=== PATIENT | female | born 1975 | race Caucasian/White ===

== ENCOUNTER 2019-05-15 13:11 | Emergency (ER) | payer MEDICARE, MEDICAID ==
[~2019-05-15] VITALS: Ht 162.6 cm; Wt 91.0 kg
[~2019-05-15 13:11] MED LIST: ATOR10TA PO; BENZ1TAB7 MT; DILT120C88 PO; HAL5 PO; OLAN15TA3 PO
[2019-05-15] MEDS ORDERED: KETOROLAC 30MG/ML VIAL IV ONE (16:15)
[2019-05-15 22:31] VITALS: BP 132/74
== END 2019-05-15 22:36 | disposition home or self-care (01) ==
LOC: ER 14:05
DX: R07.89 Other chest pain (principal); F32.9 Major depressive disorder, single episode, unspecified; E11.9 Type 2 diabetes mellitus without complications; J44.9 Chronic obstructive pulmonary disease, unspecified; I10 Essential (primary) hypertension; Z89.431 Acquired absence of right foot; Z88.8 Allergy status to other drugs, medicaments and biological substances
CPT/HCPCS: 82962; 96374; 99285; J1885

== ENCOUNTER 2019-09-29 22:47 | Emergency (ER) | payer MEDICARE, MEDICAID ==
[~2019-09-29] VITALS: Ht 170.2 cm; Wt 78.0 kg
[2019-09-30] MEDS ORDERED: ASPIRIN 81MG TABLET PO ONE (01:00)
[2019-09-30 01:21] LABS: BASOPHILS % 0.7 % (0.0-2.0); EOSINOPHILS % 1.4 % (0.0-5.0); HEMATOCRIT. 29.1 % (36.0-48.0); HEMOGLOBIN. 9.6 g/dL (12.0-16.0); LYMPHOCYTES % 22.2 % (20.0-50.0); MEAN CORPUSCULAR HEMOGLOBIN 26.9 pg (28.0-32.0); MEAN CORPUSCULAR VOLUME 81.4 fL (81.0-99.0); MEAN PLATELET VOLUME 8.5 fl (7.4-10.4); MONOCYTES % 3.7 % (2.0-8.0); PLATELET 281 x1000/uL (130-400); RED BLOOD CELL COUNT 3.58 mill/uL (4.2-5.4); RED CELL DISTRIBUTION WIDTH 15.4 % (11.6-14.6)
[2019-09-30 01:28] LABS: CHLORIDE 106 mEq/L (98-107)
[2019-09-30 01:31] LABS: ETHANOL BLOOD < 10 mg/dL
[2019-09-30 08:48] LABS: *AMPHETAMINES SCREEN URINE NEGATIVE (NEGATIVE); *BARBITURATES SCREEN URINE NEGATIVE (NEGATIVE); *BENZODIAZEPINES SCREEN URINE NEGATIVE (NEGATIVE); *COCAINE SCREEN URINE NEGATIVE (NEGATIVE); CANNABINOID URINE SCREEN NEGATIVE (NEGATIVE); METHADONE URINE SCREEN NEGATIVE (NEGATIVE); OPIATES URINE SCREEN NEGATIVE (NEGATIVE); PHENCYCLIDINE URINE SCREEN NEGATIVE (NEGATIVE)
[2019-09-30 11:30] VITALS: BP 158/60
== END 2019-09-30 14:01 | disposition left against medical advice (07) ==
LOC: ER 22:47
DX: R44.3 Hallucinations, unspecified (principal); R07.89 Other chest pain; Z11.59 Encounter for screening for other viral diseases
CPT/HCPCS: 36415; 71045; 80053; 80305; 80320; 82962; 83880; 84484; 85025; 87635; 93005; 99285; C9803; G0480

== ENCOUNTER 2020-05-11 11:18 | Inpatient (IN) | payer MEDICARE, MEDICAID ==
[~2020-05-11] VITALS: Ht 162.6 cm; Wt 99.8 kg
[~2020-05-11 11:18] MED LIST changes: -DILT120C88 PO; +DILT360C27 MT
[2020-05-11 12:00] VITALS: BP 129/70
[2020-05-11 12:28] LABS: BASOPHILS % 0.7 % (0.0-2.0); EOSINOPHILS % 4.9 % (0.0-5.0); HEMATOCRIT. 35.2 % (36.0-48.0); LYMPHOCYTES % 31.1 % (20.0-50.0); MEAN CORPUSCULAR HEMOGLOBIN 25.3 pg (28.0-32.0); MEAN CORPUSCULAR VOLUME 80.8 fL (81.0-99.0); MEAN PLATELET VOLUME 8.9 fl (7.4-10.4); MONOCYTES % 4.3 % (2.0-8.0); PLATELET 258 x1000/uL (130-400); RED BLOOD CELL COUNT 4.36 mill/uL (4.2-5.4); RED CELL DISTRIBUTION WIDTH 17.7 % (11.6-14.6)
[2020-05-11 12:35] LABS: CHLORIDE 107 mEq/L (98-107)
[2020-05-11] MEDS ORDERED: ACETAMINOPHEN 325MG TABLET PO PRN (13:30)
[2020-05-11] MEDS ORDERED: CLONIDINE 0.1MG TABLET PO PRN (13:30)
[2020-05-11] MEDS ORDERED: ONDANSETRON HCL 4MG/2ML INJ IV PRN (13:30)
[2020-05-11] MEDS ORDERED: IPRATROPIUM/ALBUTEROL 0.5-3(2.5)MG/3ML NEB HHN PRN (13:30)
[2020-05-11] MEDS ORDERED: DIPHENHYDRAMINE 50MG/ML VIAL IV PRN (13:30)
[2020-05-11] MEDS: ENOXAPARIN 40MG/0.4ML SYR SUBCUT SCH (17:21)
[2020-05-11] MEDS: OLANZAPINE 10MG TABLET PO SCH (17:29)
[2020-05-11] MEDS: DILTIAZEM HCL 300MG CAPSULE SR 24HR PO SCH (17:30)
[2020-05-11 18:21] VITALS: BP 129/70
[2020-05-11 20:00] VITALS: BP 112/51
[2020-05-11] MEDS: ATORVASTATIN CALCIUM 10MG TABLET PO SCH (22:08)
[2020-05-11] MEDS ORDERED: IOHEXOL-350 100 ML BOTTLE ONE (22:08)
[2020-05-11] MEDS: BENZTROPINE MESYLATE 2MG TABLET PO SCH (22:08)
[2020-05-11] MEDS: HALOPERIDOL 5MG TABLET PO SCH (22:09)
[2020-05-12] VITALS: BP 117/58
[2020-05-12] MEDS ORDERED: DEXTROSE 50% WATER 50ML SYRINGE IV PRN (01:15)
[2020-05-12 04:00] VITALS: BP 103/50
[2020-05-12 06:27] LABS: BASOPHILS % 0.8 % (0.0-2.0); HEMATOCRIT. 33.9 % (36.0-48.0); HEMOGLOBIN. 10.7 g/dL (12.0-16.0); LYMPHOCYTES % 32.4 % (20.0-50.0); MEAN CORPUSCULAR HEMOGLOBIN 25.6 pg (28.0-32.0); MEAN CORPUSCULAR VOLUME 81.3 fL (81.0-99.0); MEAN PLATELET VOLUME 9.1 fl (7.4-10.4); MONOCYTES % 4.4 % (2.0-8.0); NEUTROPHILS % 58.4 % (40.0-76.0); PLATELET 257 x1000/uL (130-400); RED BLOOD CELL COUNT 4.17 mill/uL (4.2-5.4); RED CELL DISTRIBUTION WIDTH 18.2 % (11.6-14.6)
[2020-05-12 07:09] LABS: CHLORIDE 107 mEq/L (98-107)
[2020-05-12 07:37] LABS: LDL CHOLESTEROL 56 mg/dL (5-100)
[2020-05-12 07:39] LABS: HDL CHOLESTEROL 50 mg/dL (40-59)
[2020-05-12] MEDS: BLOOD SUGAR DIAGNOSTIC STRIP TEST SCH ×4 (07:54→21:40)
[2020-05-12] MEDS: ENOXAPARIN 40MG/0.4ML SYR SUBCUT SCH (08:38)
[2020-05-12] MEDS: DILTIAZEM HCL 300MG CAPSULE SR 24HR PO SCH (08:39)
[2020-05-12] MEDS: OLANZAPINE 10MG TABLET PO SCH ×2 (08:41→17:18)
[2020-05-12] MEDS: BENZTROPINE MESYLATE 2MG TABLET PO SCH ×2 (08:41→17:18)
[2020-05-12] MEDS: INSULIN LISPRO 100 UNITS/ML SUBCUT SCH ×4 (08:43→21:00)
[2020-05-12 12:00] VITALS: BP 107/53
[2020-05-12 16:00] VITALS: BP 125/69
[2020-05-12 20:00] VITALS: BP 105/53
[2020-05-12] MEDS: ATORVASTATIN CALCIUM 10MG TABLET PO SCH (21:40)
[2020-05-12] MEDS: HALOPERIDOL 5MG TABLET PO SCH (21:40)
[2020-05-13] VITALS: BP 103/66
[2020-05-13 04:00] VITALS: BP 115/68
[2020-05-13] MEDS: BLOOD SUGAR DIAGNOSTIC STRIP TEST SCH ×3 (05:18→17:01)
[2020-05-13 06:18] LABS: CHLORIDE 110 mEq/L (98-107)
[2020-05-13 06:36] LABS: BASOPHILS % 1.1 % (0.0-2.0); EOSINOPHILS % 5.7 % (0.0-5.0); HEMATOCRIT. 33.5 % (36.0-48.0); HEMOGLOBIN. 10.6 g/dL (12.0-16.0); LYMPHOCYTES % 39.8 % (20.0-50.0); MEAN CORPUSCULAR HEMOGLOBIN 25.6 pg (28.0-32.0); MEAN CORPUSCULAR VOLUME 80.9 fL (81.0-99.0); MEAN PLATELET VOLUME 9.1 fl (7.4-10.4); MONOCYTES % 4.5 % (2.0-8.0); NEUTROPHILS % 48.9 % (40.0-76.0); PLATELET 264 x1000/uL (130-400); RED BLOOD CELL COUNT 4.14 mill/uL (4.2-5.4); RED CELL DISTRIBUTION WIDTH 18.2 % (11.6-14.6)
[2020-05-13] MEDS: INSULIN LISPRO 100 UNITS/ML SUBCUT SCH ×3 (07:40→17:40)
[2020-05-13 08:00] VITALS: BP 125/60
[2020-05-13] MEDS: BENZTROPINE MESYLATE 2MG TABLET PO SCH ×2 (08:12→16:50)
[2020-05-13] MEDS: DILTIAZEM HCL 300MG CAPSULE SR 24HR PO SCH (08:12)
[2020-05-13] MEDS: ENOXAPARIN 40MG/0.4ML SYR SUBCUT SCH (08:12)
[2020-05-13] MEDS: OLANZAPINE 10MG TABLET PO SCH ×2 (08:13→16:50)
[2020-05-13 12:00] VITALS: BP 152/72
[2020-05-13 16:00] VITALS: BP 111/70
[2020-05-13 16:25] VITALS: BP 117/71
== END 2020-05-13 19:24 | DRG 206 ==
LOC: ER 11:18 → 8WST 12:52 → ENRESERV 13:21
PROVIDERS: ADMIT Internal Medicine; ATTEND Internal Medicine
DX: M94.0 Chondrocostal junction syndrome [Tietze] (principal); E11.9 Type 2 diabetes mellitus without complications; F20.9 Schizophrenia, unspecified; I10 Essential (primary) hypertension; F31.9 Bipolar disorder, unspecified; E78.5 Hyperlipidemia, unspecified; E66.01 Morbid (severe) obesity due to excess calories; Z83.3 Family history of diabetes mellitus; Z68.37 Body mass index [BMI] 37.0-37.9, adult
CPT/HCPCS: 36415; 71045; 80048; 80053; 80061; 82962; 83036; 83880; 84443; 84484; 85025; 93005; 93306; 93970; 99285; J1630; J1650; J1815; Q9967

== ENCOUNTER 2020-10-16 11:19 | Emergency (ER) | payer MEDICARE, MEDICAID ==
[~2020-10-16] VITALS: Ht 165.1 cm; Wt 91.0 kg
[2020-10-16 13:27] LABS: BASOPHILS % 0.6 % (0.0-2.0); EOSINOPHILS % 3.3 % (0.0-5.0); HEMATOCRIT. 34.9 % (36.0-48.0); HEMOGLOBIN. 11.5 g/dL (12.0-16.0); LYMPHOCYTES % 23.8 % (20.0-50.0); MEAN CORPUSCULAR HEMOGLOBIN 27.2 pg (28.0-32.0); MEAN CORPUSCULAR VOLUME 82.7 fL (81.0-99.0); MEAN PLATELET VOLUME 8.7 fl (7.4-10.4); MONOCYTES % 6.8 % (2.0-8.0); NEUTROPHILS % 65.5 % (40.0-76.0); PLATELET 256 x1000/uL (130-400); RED BLOOD CELL COUNT 4.22 mill/uL (4.2-5.4); RED CELL DISTRIBUTION WIDTH 14.4 % (11.6-14.6)
[2020-10-16 13:34] LABS: CHLORIDE 106 mEq/L (98-107)
[2020-10-16 21:27] VITALS: BP 120/68
== END 2020-10-16 21:36 | disposition home or self-care (01) ==
LOC: ER 11:36
DX: R07.89 Other chest pain (principal); Z79.899 Other long term (current) drug therapy; F20.9 Schizophrenia, unspecified; Z20.822 Contact with and (suspected) exposure to COVID-19
CPT/HCPCS: 36415; 71045; 80048; 84484; 85025; 87426; 93005; 99285

== ENCOUNTER 2021-04-23 02:52 | Emergency (ER) | payer MEDICARE, MEDICAID ==
[~2021-04-23] VITALS: Ht 154.9 cm; Wt 91.0 kg
[2021-04-23] MEDS ORDERED: ASPIRIN 81MG TABLET PO ONE (03:15)
[2021-04-23 03:43] LABS: BASOPHILS % 1.1 % (0.0-2.0); EOSINOPHILS % 4.3 % (0.0-5.0); LYMPHOCYTES % 22.1 % (20.0-50.0); MEAN CORPUSCULAR HEMOGLOBIN 25.8 pg (28.0-32.0); MEAN CORPUSCULAR VOLUME 79.5 fL (81.0-99.0); MEAN PLATELET VOLUME 8.9 fl (7.4-10.4); NEUTROPHILS % 67.5 % (40.0-76.0); PLATELET 259 x1000/uL (130-400); RED BLOOD CELL COUNT 4.27 mill/uL (4.2-5.4); RED CELL DISTRIBUTION WIDTH 14.5 % (11.6-14.6)
[2021-04-23 03:49] LABS: CHLORIDE 107 mEq/L (98-107)
[2021-04-23 03:53] LABS: ETHANOL BLOOD < 10 mg/dL
[2021-04-23 05:31] LABS: *AMPHETAMINES SCREEN URINE NEGATIVE (NEGATIVE); CANNABINOID URINE SCREEN NEGATIVE (NEGATIVE); OPIATES URINE SCREEN NEGATIVE (NEGATIVE); PHENCYCLIDINE URINE SCREEN NEGATIVE (NEGATIVE)
[2021-04-23 05:33] LABS: *BARBITURATES SCREEN URINE NEGATIVE (NEGATIVE); *BENZODIAZEPINES SCREEN URINE NEGATIVE (NEGATIVE); *COCAINE SCREEN URINE NEGATIVE (NEGATIVE); METHADONE URINE SCREEN NEGATIVE (NEGATIVE)
[2021-04-23 09:51] VITALS: BP 152/78
== END 2021-04-23 09:53 ==
LOC: ER 03:12
DX: R07.89 Other chest pain (principal); E11.9 Type 2 diabetes mellitus without complications; E78.00 Pure hypercholesterolemia, unspecified; I10 Essential (primary) hypertension; Z88.8 Allergy status to other drugs, medicaments and biological substances; Z98.890 Other specified postprocedural states; Z86.59 Personal history of other mental and behavioral disorders
CPT/HCPCS: 36415; 71045; 80053; 80305; 80320; 83880; 84443; 84484; 85025; 93005; 99285; G0480

== ENCOUNTER 2021-05-08 11:21 | Emergency (ER) | payer MEDICARE, MEDICAID ==
[~2021-05-08] VITALS: Ht 165.1 cm; Wt 80.0 kg
[2021-05-08 12:45] LABS: BASOPHILS % 0.7 % (0.0-2.0); EOSINOPHILS % 4.4 % (0.0-5.0); HEMATOCRIT. 37.9 % (36.0-48.0); HEMOGLOBIN. 12.4 g/dL (12.0-16.0); LYMPHOCYTES % 35.3 % (20.0-50.0); MEAN CORPUSCULAR HEMOGLOBIN 25.5 pg (28.0-32.0); MEAN CORPUSCULAR VOLUME 78.3 fL (81.0-99.0); MEAN PLATELET VOLUME 8.7 fl (7.4-10.4); MONOCYTES % 3.9 % (2.0-8.0); NEUTROPHILS % 55.7 % (40.0-76.0); PLATELET 285 x1000/uL (130-400); RED BLOOD CELL COUNT 4.84 mill/uL (4.2-5.4); RED CELL DISTRIBUTION WIDTH 14.9 % (11.6-14.6)
[2021-05-08 12:52] LABS: CHLORIDE 105 mEq/L (98-107)
[2021-05-08] MEDS ORDERED: ACETAMINOPHEN 325MG TABLET PO NR (14:30)
[2021-05-08 18:42] VITALS: BP 140/89
== END 2021-05-08 19:35 | disposition home or self-care (01) ==
LOC: ER 11:35
DX: R07.89 Other chest pain (principal); E11.22 Type 2 diabetes mellitus with diabetic chronic kidney disease; E11.65 Type 2 diabetes mellitus with hyperglycemia; I12.9 Hypertensive chronic kidney disease with stage 1 through stage 4 chronic kidney disease, or unspecified chronic kidney disease; N18.9 Chronic kidney disease, unspecified; E78.00 Pure hypercholesterolemia, unspecified; F20.9 Schizophrenia, unspecified; Z75.1 Person awaiting admission to adequate facility elsewhere; Z88.8 Allergy status to other drugs, medicaments and biological substances
CPT/HCPCS: 36415; 71045; 80053; 83880; 84484; 85025; 93005; 99285